=== PATIENT | male | born 1940 | race Caucasian/White ===

== ENCOUNTER → 2017-02-12 | Day surgery (SDC) | payer MEDICARE, OTHER ==
[~2017-02-12] VITALS: Ht 168.9 cm; Wt 75.8 kg
[~2017-02-12] MED LIST: 0.9% Sodium Chloride 1,000 ML IV SCH; ASPI-973 PO; B12; HYDR12.55 PO; LISI-567 PO; PRAV20TA2 PO; Sodium Chloride LOK Flush 10 mL Syringe IV PRN; ZES5; fentaNYL-PF 50 mCg/mL 2 mL Inj IVPUSH PRN
[2017-02-12 14:22] VITALS: BP 134/80; PULSE 66; RESP 12; O2SAT 97
[2017-02-12 15:19] VITALS: BP 132/76; PULSE 56; RESP 15; O2SAT 96
[2017-02-12 15:42] VITALS: BP 134/70; PULSE 61; RESP 15; O2SAT 96
--- NOTE | 2017-02-12 15:52 | ENDO ---
[address] [address] ENDOSCOPY PROCEDURE PATIENT: DESHAWN LOVELACE : 1940 MR#: [id number] ADMIT: 02/12/2017 JOB ID: [id number] DATE: 02/12/2017 PRIMARY PROVIDER: Akil Davies M.D. PROCEDURE: Esophagogastroduodenoscopy. INDICATIONS: A 76-year-old male with a history of gastric ulceration in 2014 and 2016. His endoscopy report from both years was reviewed. Biopsies from both cases did not demonstrate any evidence of Helicobacter infection. They both seemed to be associated with NSAID use. Since October of this year, he has not used any further aspirin. He takes only Zantac a couple of times per month at this point as needed for reflux. He is not currently taking a regular proton pump inhibitor, but denies any significant chronic symptoms. Repeat EGD was requested to ensure he has experienced complete ulcer healing. EQUIPMENT: GIF H 190 J. SEDATION: 1. 3 mg Versed. 2. 75 mcg fentanyl. COMPLICATIONS: None identified. PROCEDURAL INFORMATION: After the risks and benefits were explained, written and verbal informed consent was obtained. The patient was brought into the endoscopy suite and placed into the left lateral decubitus position. Sedation was achieved using the above-stated medications with the addition of oxygen via nasal cannula. The scope was introduced into the mouth through the bite block, and advanced under direct visualization to the second portion of the duodenum. The scope was slowly withdrawn to carefully examine the mucosa for any defects or lesions. Retroflexed views were accomplished in the stomach. The stomach was decompressed. The scope removed from the patient who tolerated the procedure well. FINDINGS: 1. Duodenum: No pathology identified from the bulb through to the second portion. 2. Stomach: No outlet obstruction. No mass lesions. No ulcers evident. There appears to have been complete mucosal healing of the previously described ulcer from October of this year. We made an exhaustive look through the stomach including the greater curvature, especially focusing down in the antrum as was described in the note from October. Minimal gastropathy, some healing old erosive features. No other significant pathology. I did not repeat biopsies in that he was very recently negative for H. pylori. Retroflexed views of the LES disclosed a subtle sliding hiatal hernia. 3. Esophagus: The squamocolumnar junction correlated with the top of the gastric folds. The GEJ was at about 40 cm from the incisors. The patient had evidence of LA grade A erosive esophagitis. No other pathology was identified throughout the esophagus. ENDOSCOPIC DIAGNOSES: 1. Subtle sliding hiatal hernia. 2. LA grade A erosive esophagitis. 3. Mild diffuse gastropathy. 4. Healed gastric ulceration. RECOMMENDATIONS: 1. Continue to avoid nonsteroidal anti-inflammatory drug therapy. 2. If it is absolutely necessary to utilize nonsteroidal anti-inflammatory drugs in the future, I would recommend concomitant proton pump inhibitor therapy. 3. Considering the presence of LA grade A erosive esophagitis, it would be prudent to implement a consistent anti-reflux program. Perhaps a little more regular use of Zantac may be all that is necessary. 4. Followup in primary care on a routine basis. Followup GI p.r.n.
== END | disposition home or self-care (01) ==
LOC: END 02:20
PROVIDERS: ATTEND Internal Medicine Gastroenterology
DX: K22.10 Ulcer of esophagus without bleeding (principal); K31.9 Disease of stomach and duodenum, unspecified; K44.9 Diaphragmatic hernia without obstruction or gangrene; I10 Essential (primary) hypertension
CPT/HCPCS: 43235; G0500; J2250; J3010; J7030